=== PATIENT | female | born 1970 | race African-American/Black ===

== ENCOUNTER → 2016-10-17 10:35 | Outpatient (CLI) | payer MEDICAID | END | disposition home or self-care (01) | LOC: D.MRI 10:35 | DX: M79.641 Pain in right hand (principal) ==

== ENCOUNTER → 2019-10-06 19:23 | Outpatient (CLI) | payer MEDICAID | END | disposition home or self-care (01) | LOC: D.MAMMO 16:15 | PROVIDERS: ATTEND Family Medicine | DX: Z12.31 Encounter for screening mammogram for malignant neoplasm of breast (principal) ==